=== PATIENT | female | born 1940 | race Native Hawaiian/Other Pacific Islander ===

== ENCOUNTER 2018-12-19 17:28 | Emergency (ER) | payer MEDICARE, OTHER ==
[2018-12-19] MEDS ORDERED: Enoxaparin 60 mg Syringe SC STA (18:32)
--- NOTE | 2018-12-19 18:33 | C.PDOC ---
History Of Present Illness 78 year old female brought to ED via EMS for left calf pain. Patient denies trauma or injury. Patient states that she has had the pain for months. She states that she takes oxycodone for the pain. Patient denies numbness or weakness. Time Seen by Provider: 12/19/18 18:20 Chief Complaint (Nursing): Lower Extremity Problem/Injury History Per: Patient, EMS History/Exam Limitations: no limitations Onset/Duration Of Symptoms: Other (months) Current Symptoms Are (Timing): Still Present Past Medical History Reviewed: Historical Data, Nursing Documentation, Vital Signs - Medical History PMH: No Chronic Diseases Surgical History: No Surg Hx Family History: States: Unknown Family Hx - Social History Hx Alcohol Use: No Hx Substance Use: No - Immunization History Hx Tetanus Toxoid Vaccination: No Hx Influenza Vaccination: No Hx Pneumococcal Vaccination: No Review Of Systems Except As Marked, All Systems Reviewed And Found Negative. Musculoskeletal: Positive for: Leg Pain (left calf pain) Physical Exam - Physical Exam Appears: Well, Non-toxic, No Acute Distress Skin: Normal Color, Warm, Dry Head: Atraumatic, Normacephalic Eye(s): bilateral: Normal Inspection, PERRL, EOMI Nose: Normal Oral Mucosa: Moist Chest: Symmetrical Cardiovascular: Rhythm Regular, No Murmur Respiratory: Normal Breath Sounds, No Rales, No Rhonchi, No Wheezing Gastrointestinal/Abdominal: Normal Exam, Soft, No Tenderness Extremity: Tenderness (left calf), No Swelling (left calf), Other (achilles tendon intact, pulses equal, DP and PT pulses intact) Extremity: Bilateral: Normal Color And Temperature, Normal ROM Pulses: Left Dorsalis Pedis: Normal, Right Dorsalis Pedis: Normal Neurological/Psych: Oriented x3, Normal Speech, Normal Cognition Medical Decision Making Medical Decision Making: Assessment: calf pain Plan:Patient given Lovenox SC and Motrin PO Advised patient to return tomorrow for US of the left lower extremity Patient was in waiting room and now noted to be confused based upon previous note it was mentioned however nurse note indicated patient with left leg pain. patient brought back into ED and full workup ordered unable to ammend this chart as patient was discharged from the system. Disposition Counseled Patient/Family Regarding: Studies Performed, Diagnosis, Need For Followup - Disposition Disposition: HOME/ ROUTINE Disposition Time: 18:32 Condition: STABLE Additional Instructions: return to ER in AM for ultrasound of calf bring your discharge papers with you return to ER sooner if symptoms worsens or progress Instructions: Muscle and Bone Pain (DC) Forms: [facility] (Telugu), General Discharge Instructions - Clinical Impression Clinical Impression: Calf pain - Scribe Statement The provider has reviewed the documentation as recorded by the Scribe (Goldie Peralta) All medical record entries made by the Scribe were at my direction and personally dictated by me. I have reviewed the chart and agree that the record accurately reflects my personal performance of the history, physical exam, medical decision making, and the department course for this patient. I have also personally directed, reviewed, and agree with the discharge instructions and disposition.
[2018-12-19] MEDS ORDERED: Enoxaparin 80 mg Syringe ONE (18:41)
[2018-12-19 19:16] VITALS: BP 174/108; PULSE 78; TEMP 98.3; O2SAT 98
== END 2018-12-19 19:17 | disposition home or self-care (01) ==
LOC: C.ER 17:28
DX: M79.662 Pain in left lower leg (principal)
CPT/HCPCS: 82948; 96372; 99284; J1650

== ENCOUNTER 2018-12-19 20:18 | Inpatient (IN) | payer MEDICARE, BC ==
[2018-12-19 20:24] VITALS: BMI 26.4
--- NOTE | 2018-12-19 21:17 | C.PDOC ---
History Of Present Illness Patient is a 78 year old female who was seen earlier today in the ED for calf pain, but it was reported after discharge that patient was biba for confusion and was noted to be driving and not knowing where she was going. Patient was initially aox3 and is now aox1. HPI limited due to patient's condition. Time Seen by Provider: 12/19/18 20:23 Chief Complaint (Nursing): Medical Clearance History Per: Patient, Other History/Exam Limitations: clinical condition Current Symptoms Are (Timing): Still Present Recent travel outside of the [place]: No Additional History Per: Patient Past Medical History Reviewed: Historical Data, Nursing Documentation, Vital Signs Vital Signs: Last Vital Signs Temp 98.8 F 12/19/18 20:24 Pulse 72 12/19/18 20:24 Resp 16 12/19/18 20:24 BP 185/94 H 12/19/18 20:24 Pulse Ox 95 12/19/18 20:24 - Medical History PMH: No Chronic Diseases Surgical History: No Surg Hx Family History: States: Unknown Family Hx - Social History Hx Alcohol Use: No Hx Substance Use: No - Immunization History Hx Tetanus Toxoid Vaccination: No Hx Influenza Vaccination: No Hx Pneumococcal Vaccination: No Review Of Systems Review Of Systems: ROS cannot be obtained secondary to pt's inabilty to answer questions. Physical Exam - Physical Exam Appears: Non-toxic, No Acute Distress Skin: Normal Color, Warm, Dry Head: Atraumatic, Normacephalic Eye(s): bilateral: Normal Inspection, PERRL, EOMI Oral Mucosa: Moist Chest: Symmetrical Cardiovascular: Rhythm Regular, No Murmur Respiratory: Normal Breath Sounds, No Rales, No Rhonchi, No Wheezing Gastrointestinal/Abdominal: Normal Exam, Soft, No Tenderness Extremity: Bilateral: Atraumatic, Normal Color And Temperature, Normal ROM Neurological/Psych: Other (AOx1) ED Course And Treatment - Laboratory Results Result Diagrams: 12/19/18 21:33 12/19/18 21:33 ECG: Interpreted By Me, Viewed By Me ECG Rhythm: Sinus Rhythm Interpretation Of ECG: Normal intervals, normal axis. Nonspecific ST/T wave changes Rate From EC O2 Sat by Pulse Oximetry: 95 (on RA) Pulse Ox Interpretation: Normal - CT Scan/US CT Head Other Rad Studies (CT/US): Read By Radiologist, Radiology Report Reviewed CT/US Interpretation: EXAM: CT Head without Intravenous Contrast. CLINICAL HISTORY: Dizzy. TECHNIQUE: Axial computed tomography images of the head/brain without intravenous contrast. 0.00 mGy-cm. COMPARISON: None provided. FINDINGS: BRAIN. There is mild periventricular, deep and subcortical white matter hypodensity bilaterally, compatible with mild microangiopathy. No evidence for acute intracranial hemorrhage. VENTRICLES: There is moderate prominence of ventricles and sulci compatible with moderate atrophy. ORBITS: The orbits are unremarkable. SINUSES AND MASTOIDS: The paranasal sinuses and mastoid air cells are clear. BONES: No evidence for displaced calvarial frac ture. SOFT TISSUES: Unremarkable. MISCELLANEOUS: No evidence for acute territorial infarction. IMPRESSION: 1. There is moderate prominence of ventricles and sulci compatible with moderate atrophy. 2. There is mild periventricular, deep and subcortical white matter hypodensity bilaterally, com patible with mild microangiopathy. 3. No evidence for acute intracranial abnormality. Medical Decision Making Medical Decision Making: Plan: CAT Head EKG CXR Labs Urinalysis Assessment: mental status change Disposition Discussed With DrTravis: Sonny Sherman Jr. Doctor Will See Patient In The: Hospital Counseled Patient/Family Regarding: Studies Performed, Diagnosis - Disposition Disposition: HOSPITALIZED Disposition Time: 22:17 Condition: FAIR Forms: [facility] (Serbian) - Clinical Impression Clinical Impression: Confusion - Scribe Statement The provider has reviewed the documentation as recorded by the Zane Lloyd All medical record entries made by the Ankuribtonio were at my direction and personally dictated by me. I have reviewed the chart and agree that the record accurately reflects my personal performance of the history, physical exam, medic al decision making, and the department course for this patient. I have also personally directed, reviewed, and agree with the discharge instructions and disposition.
[2018-12-19 21:37] LABS: BASO # 0.1 K/uL (0.0-0.2); BASO % 0.9 % (0.0-2.0); EOS # 0.2 K/uL (0.0-0.7); EOS % 3.5 % (0.0-4.0); HEMOGLOBIN 14.6 g/dL (11.0-16.0); LYMPH # 2.5 K/uL (1.0-4.3); LYMPH % 35.7 % (20.0-40.0); MEAN CELL VOLUME 84.8 fL (81.0-99.0); MEAN CORPUSCULAR HEMOGLOBIN 29.5 pg (27.0-31.0); MEAN CORPUSCULAR HGB CONC 34.8 g/dL (33.0-37.0); MONO # 0.7 K/uL (0.0-0.8); MONO % 9.5 % (0.0-10.0); NEUT # 3.5 K/uL (1.8-7.0); NEUT % 50.4 % (50.0-75.0); NRBC % 0.1 % (0.0-2.0); RBC 4.93 Mil/uL (3.80-5.20); RED CELL DISTRIBUTION WIDTH 13.6 % (11.5-14.5)
[2018-12-19 22:06] LABS: ALB/GLOB RATIO 1.2 (1.0-2.1); ALBUMIN 4.1 g/dL (3.5-5.0); ALT/SGPT 16 U/L (9-52); AST/SGOT 39 U/L (14-36); BLOOD UREA NITROGEN 30 mg/dL (7-17); CALCIUM 9.7 mg/dl (8.6-10.4); GFR NON-AFRICAN AMERICAN > 60
[2018-12-19 22:14] LABS: B-TYPE NATRIURETIC PEPTIDE 71.1 pg/mL (0-900)
[2018-12-20 07:10] LABS: SQUAMOUS EPITHIAL < 1 /hpf (0-5); URINE BACTERIA RARE (<OCC); URINE BILIRUBIN NEGATIVE (NEGATIVE); URINE BLOOD 2+ (NEGATIVE); URINE CLARITY Hazy (Clear); URINE COLOR Yellow (YELLOW); URINE GLUCOSE (UA) NORMAL (Normal); URINE HYALINE CAST 0-2 /lpf (0-2); URINE LEUKOCYTE ESTERASE TRACE Leu/uL (Negative); URINE PROTEIN 1+ mg/dL (NEGATIVE); URINE UROBILINOGEN NORMAL mg/dL (0.2-1.0)
--- NOTE | 2018-12-20 08:03 | CT ---
Date of service: 12/19/2018 PROCEDURE: CT HEAD WITHOUT CONTRAST. HISTORY: dizziness COMPARISON: None available. TECHNIQUE: Axial computed tomography images were obtained through the head/brain without intravenous contrast. Radiation dose: Total exam DLP = 1044.07 mGy-cm. This CT exam was performed using one or more of the following dose reduction techniques: Automated exposure control, adjustment of the mA and/or kV according to patient size, and/or use of iterative reconstruction technique. FINDINGS: HEMORRHAGE: No intracranial hemorrhage. BRAIN: No mass effect or edema. There is mild volume loss. There are mild white matter changes likely represent chronic microvascular ischemic disease. VENTRICLES: Unremarkable. No hydrocephalus. CALVARIUM: Unremarkable. PARANASAL SINUSES: Unremarkable as visualized. No significant inflammatory changes. MASTOID AIR CELLS: Unremarkable as visualized. No inflammatory changes. OTHER FINDINGS: None. IMPRESSION: No evidence of acute intracranial hemorrhage intracranial collection mass effect or midline shift. Mild atrophy and chronic microvascular ischemic changes. Preliminary report was submitted by [facility] Radiology contains concordant findings.
--- NOTE | 2018-12-20 09:31 | CP.PCM.HP ---
History of Present Illness - History of Present Illness History of Present Illness: H&P for Dr. Sherman. 78 year old Female with PMHx of lumbar radiculopathy and chronic L leg pain presents to ED after she was found to be confused, driving around [facility]. Patient was AOx1 on arrival. However, patient was AOx3 earlier in the day when she was seen in the ED for L calf pain. At that time, patient was given Lovenox SC, Motrin PO and advised to return the the next morning for US of the LLE. At the time of my exam, patient was AOx2 (person and time). She stated that she made a wrong turn while driving and got lost. Patient is complaining of L calf cramping, which she states she had for a long time and attributes to her lumbar radiculopathy. Patient denies fever, chills, nausea, vomiting, slurred speech, focal weakness and numbness, change in vision, change in hearing, abdominal pain, chest pain, shortness of breath, dysuria. PMHx: lumbar radiculopathy, chronic L leg pain PSHx: total abdominal hysterectomy Meds: Pain meds she does not recall, ibuprofen 200mg BID, Gabapentin 300mg BID Allergies: NKDA Social: denies tobacco, illicit drugs, occasional alcohol use. Retired teacher. . No children. Family hx: Sister-HTN Review of Systems: -Gen: No fever, No chills, No headache, No lethargy, No weakness. -HEENT: No dizziness, No change in vision, No change in hearing, No sore throa t, No dysphagia, No nasal congestion, No mucous. -Cardio: No chest pain, No palpitations, No lower extremity edema, No orthopnea. -Resp: No cough, No dyspnea, No hemoptysis, No wheezing, No pain on i nspiration. -GI: No abdominal pain, No nausea/vomiting, No diarrhea/constipation, No hematochezia, No hematemesis. -: No dysuria, No urinary freq, No incontinence, No hematuria, No change in urinary stream. -MSK: + L leg pain -Skin: No itching, No rash, No lesions. -Neuro: + confusion, No numbness, No tingling, No focal weakness, No syncope. -Psych: No anxiety, No depression, No H/I, No S/I, No hallucinations. Present on Admission - Present on Admission Any Indicators Present on Admission: No Past Patient History - Past Social History Smoking Status: Never Smoked - MUSCULOSKELETAL/RHEUMATOLOGICAL Hx Musculoskeletal Disorders: Yes Hx Back Pain: Yes Other/Comment: lower extremity pain. - PSYCHIATRIC Hx Substance Use: No - SURGICAL HISTORY Hx Hysterectomy: Yes - ANESTHESIA Hx Anesthesia: Yes Hx Anesthesia Reactions: No Meds Allergies/Adverse Reactions: Allergies Allergy/AdvReac Type Severity Reaction Status Date / Time No Known Allergies Allergy Verified 12/19/18 17:48 Physical Exam - Constitutional Appears: Non-toxic, No Acute Distress - Head Exam Head Exam: ATRAUMATIC, NORMOCEPHALIC - Eye Exam Eye Exam: EOMI, Normal appearance, PERRL - ENT Exam ENT Exam: Mucous Membranes Moist, Normal Exam - Neck Exam Neck exam: Positive for: Full Rom, Normal Inspection - Respiratory Exam Respiratory Exam: Clear to Auscultation Bilateral, NORMAL BREATHING PATTERN. absent: Rales, Rhonchi, Wheezes - Cardiovascular Exam Cardiovascular Exam: REGULAR RHYTHM, +S1, +S2 - GI/Abdominal Exam GI & Abdominal Exam: Normal Bowel Sounds, Soft. absent: Distended, Guarding, Rebound, Tenderness - Extremities Exam Extremities exam: Positive for: full ROM (L leg ROM intact, but painful), normal inspection, pedal pulses present. Negative for: calf tenderness, pedal edema, tenderness Additional comments: LLE non tender to palpation, no edema. - Neurological Exam Additional comments: AOx2 (person and place). PERRL. No facial asymmetry. CN 2-12 intact. Speech is normal. 5/5 muscle strength in all extremities, sensation intact bilaterally. No dysmetria. No dysdiadochokenesis. - Psychiatric Exam Psychiatric exam: Normal Mood - Skin Skin Exam: Dry, Normal Color, Warm Results - Vital Signs Recent Vital Signs: Last Vital Signs Temp 98 F 12/20/18 07:44 Pulse 78 12/20/18 07:44 Resp 20 12/20/18 07:44 BP 97/60 L 12/20/18 07:44 Pulse Ox 95 12/20/18 07:44 - Labs Result Diagrams: 12/19/18 21:33 12/20/18 11:53 Labs: Laboratory Results - last 24 hr 12/19/18 12/19/18 12/19/18 20:30 21:33 21:33 WBC 7.0 RBC 4.93 Hgb 14.6 Hct 41.8 MCV 84.8 MCH 29.5 MCHC 34.8 RDW 13.6 Plt Count 258 MPV 7.0 L Neut % (Auto) 50.4 Lymph % (Auto) 35.7 Jerome % (Auto) 9.5 Eos % (Auto) 3.5 Baso % (Auto) 0.9 Neut # (Auto) 3.5 Lymph # (Auto) 2.5 Jerome # (Auto) 0.7 Eos # (Auto) 0.2 Baso # (Auto) 0.1 Sodium 137 Potassium 3.7 Chloride 103 Carbon Dioxide 29 Anion Gap 9 L BUN 30 H Creatinine 0.9 Est GFR ( Amer) > 60 Est GFR (Non-Af Amer) > 60 POC Glucose (mg/dL) 102 Random Glucose 106 H Calcium 9.7 Total Bilirubin 0.8 AST 39 H ALT 16 Alkaline Phosphatase 85 Troponin I < 0.0120 NT-Pro-B Natriuret Pep 71.1 Total Protein 7.5 Albumin 4.1 Globulin 3.4 Albumin/Globulin Ratio 1.2 TSH 3rd Generation 4.11 Urine Color Urine Clarity Urine pH Ur Specific Nelson Urine Protein Urine Glucose (UA) Urine Ketones Urine Blood Urine Nitrate Urine Bilirubin Urine Urobilinogen Ur Leukocyte Esterase Urine WBC (Auto) Urine RBC (Auto) Ur Squamous Epith Cells Urine Bacteria Hyaline Casts Urine Yeast (Budding) 12/20/18 06:42 WBC RBC Hgb Hct MCV MCH MCHC RDW Plt Count MPV Neut % (Auto) Lymph % (Auto) Jerome % (Auto) Eos % (Auto) Baso % (Auto) Neut # (Auto) Lymph # (Auto) Jerome # (Auto) Eos # (Auto) Baso # (Auto) Sodium Potassium Chloride Carbon Dioxide Anion Gap BUN Creatinine Est GFR ( Amer) Est GFR (Non-Af Amer) POC Glucose (mg/dL) Random Glucose Calcium Total Bilirubin AST ALT Alkaline Phosphatase Troponin I NT-Pro-B Natriuret Pep Total Protein Albumin Globulin Albumin/Globulin Ratio TSH 3rd Generation Urine Color Yellow Urine Clarity Hazy Urine pH 6.0 Ur Specific Nelson 1.019 Urine Protein 1+ H Urine Glucose (UA) Normal Urine Ketones Negative Urine Blood 2+ H Urine Nitrate Negative Urine Bilirubin Negative Urine Urobilinogen Normal Ur Leukocyte Esterase Trace Urine WBC (Auto) 20 H Urine RBC (Auto) 98 H Ur Squamous Epith Cells < 1 Urine Bacteria Rare Hyaline Casts 0-2 Urine Yeast (Budding) Few H Assessment & Plan - Assessment and Plan (Free Text) Assessment: 78 year old female with pmhx of lumbar radiculopathy admitted for evaluation of AMS AMS CT head: no acute abnormality, chronic microvascular ischemic changes EKG: NSR @ 74, prolonged QTc at 475, nonspecific T wave abnormalities f/u blood cx f/u UA Asa 81mg PO daily Crestor 10mg HS HTN hypertensive of admission 185/94 denies hx of HTN Hydralazine 25mg PO x1 HCTZ 25 daily Lumbar radiculopathy Tylenol/Motrin PRN Gabapentin 300mg BID Ppx VTE: Heparin Q8H Discussed w/ Dr. Lane Clements, PGY-1
--- NOTE | 2018-12-20 09:54 | RAD ---
Date of service: 12/19/2018 PROCEDURE: CHEST RADIOGRAPH, 1 VIEW HISTORY: SOB COMPARISON: 12/19/2018. FINDINGS: LUNGS: The lungs are well inflated and clear. PLEURA: No pneumothorax or pleural effusion. CARDIOVASCULAR: The heart is normal in size. No aortic atherosclerotic calcifications present. OSSEOUS STRUCTURES: Within normal limits for the patient's age. VISUALIZED UPPER ABDOMEN: Normal. OTHER FINDINGS: None. IMPRESSION: No active pulmonary disease.
--- NOTE | 2018-12-20 11:05 | CARD ---
APPROVED REPORT Date of service: 12/19/2018 EKG Measurement Heart [id number] <Conclusion> Normal sinus rhythm Nonspecific T wave abnormality Prolonged QT Abnormal ECG
[2018-12-20 12:15] LABS: ALB/GLOB RATIO 1.3 (1.0-2.1); ALBUMIN 4.7 g/dL (3.5-5.0); ALT/SGPT 15 U/L (9-52); AST/SGOT 36 U/L (14-36); BLOOD UREA NITROGEN 25 mg/dL (7-17); CALCIUM 10.1 mg/dl (8.6-10.4); GFR NON-AFRICAN AMERICAN > 60
--- NOTE | 2018-12-20 12:44 | CP.PCM.PN ---
Subjective - Date & Time of Evaluation Date of Evaluation: 12/20/18 Time of Evaluation: 08:45 - Subjective Subjective: Patient examined at bedside, still somewhat confused. Patient reports continued left lower leg pain, for which she follows with a story analyst, and reports pain management with anti-inflammatory agents. Patient denies history of hypert ension. Denies complaints of chest pain, SOB, nausea, constipation. Objective - Vital Signs/Intake and Output Vital Signs (last 24 hours): Temp Pulse Resp BP Pulse Ox 98 F 78 20 97/60 L 95 12/20/18 07:44 12/20/18 07:44 12/20/18 07:44 12/20/18 07:44 12/20/18 07:44 - Medications Medications: Current Medications Acetaminophen (Tylenol 325mg Tab) 650 mg PO Q6 PRN PRN Reason: Pain, moderate (4-7) Gabapentin (Neurontin) 300 mg PO BID [facility] Last Admin: 12/20/18 10:36 Dose: 300 mg Heparin Sodium (Porcine) (Heparin) 5,000 units SC Q8 [facility] Last Admin: 12/20/18 05:49 Dose: Not Given Ibuprofen (Motrin Oral Susp) 200 mg PO Q12H [facility] Last Admin: 12/20/18 10:35 Dose: 200 mg Influenza Virus Vaccine (Flucelvax Quad [id number] Syr) 60 mcg IM .ONCE ONE Stop: 12/22/18 10:01 Pneumococcal Polyvalent Vaccine (Pneumovax 23 Vaccine) 0.5 ml IM .ONCE ONE Stop: 12/22/18 10:01 Rosuvastatin Calcium (Crestor) 10 mg PO HS [facility] - Labs Labs: 12/19/18 21:33 12/20/18 11:53 - Constitutional Appears: Non-toxic, No Acute Distress, Confused - Head Exam Head Exam: ATRAUMATIC, NORMAL INSPECTION, NORMOCEPHALIC - Eye Exam Eye Exam: EOMI, Normal appearance - ENT Exam ENT Exam: Mucous Membranes Moist, Normal Exam - Neck Exam Neck Exam: Normal Inspection - Respiratory Exam Respiratory Exam: Clear to Ausculation Bilateral, NORMAL BREATHING PATTERN - Cardiovascular Exam Cardiovascular Exam: REGULAR RHYTHM, Murmur - GI/Abdominal Exam GI & Abdominal Exam: Soft, Normal Bowel Sounds. absent: Distended, Tenderness - Extremities Exam Extremities Exam: Normal Inspection. absent: Calf Tenderness, Pedal Edema - Neurological Exam Neurological Exam: Awake, Oriented x3 - Psychiatric Exam Psychiatric exam: Normal Affect, Normal Mood - Skin Skin Exam: Dry, Intact, Normal Color, Warm Assessment and Plan - Assessment and Plan (Free Text) Assessment: 78 year old female with pmhx of lumbar radiculopathy admitted for evaluation of AMS Plan: PE, acute D-dimer elevated at 999 CTA: multiple filling defects noted in right middle and lower lobes, left upper lobe consistent with pulmonary emboli. Mild cardiomegaly. Mildly enlarged right heart f/u LE dopplers f/u echo started on xarelto 15mg po BID AMS CT head: no acute abnormality, chronic microvascular ischemic changes EKG: f/u blood cx UA: 20 WBC, 98 RBC TSH/B12: WNL RPR negative UTI, suspected WBC 20, RBC 98 starting macrobid 100mg po q12 HTN hypertensive on admission 185/94 denies hx of HTN adding lisinopril 20mg po qd Lumbar radiculopathy Tylenol/Motrin PRN SCD contraindicated Ppx VTE: on xarelto; SCD contraindicated GI: Pepcid 20mg BID Dispo: Pt needs YAMILE pierson Discussed w/ Dr. Lane Paul, PGY-1
[2018-12-20] MEDS ORDERED: Iodixanol 320 MG/ML 100 ML BOTTLE IV ONE (13:23)
--- NOTE | 2018-12-20 14:33 | CT ---
Date of service: 12/20/2018 PROCEDURE: CT Chest with contrast (Pulmonary Angiogram) HISTORY: elevated d-dimer COMPARISON: None available. TECHNIQUE: Axial computed tomography images were obtained of the chest in the pulmonary arterial phase of enhancement. Coronal and sagittal reformatted images were created and reviewed. Intravenous contrast dose: 100 mL of Visipaque 320 intravenously. Radiation dose: Total exam DLP = 382.67 mGy-cm. This CT exam was performed using one or more of the following dose reduction techniques: Automated exposure control, adjustment of the mA and/or kV according to patient size, and/or use of iterative reconstruction technique. FINDINGS: PULMONARY ARTERIES: There are filling defect noted in the right middle right lower and left upper lobe pulmonary arteries consistent with pulmonary emboli. The main pulmonary artery is not enlarged. 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 The aortic arch and descending thoracic aorta are normal in caliber. There are foci of atherosclerotic calcification and mural thickening noted in the aortic arch and descending thoracic aorta. LUNGS: There is a pleural-based nodule seen along the right lesser fissure measures 5.2 millimeter. No evidence of pneumonia or mass otherwise in the lungs. PLEURAL SPACES: Unremarkable. No effusion or pneumothorax. HEART: The heart is mildly enlarged. No evidence of pericardial effusion. There is mild enlargement of right heart suggestive of mild heart strain. LYMPH NODES: No lymphadenopathy. BONES, CHEST WALL: Unremarkable. No fracture or destructive lesion OTHER FINDINGS: Mild distal esophagus mucosal thickening is noted. IMPRESSION: Multiple filling defects noted in the right middle right lower and left upper lobes pulmonary arteries consistent with pulmonary emboli. Mild cardiomegaly. Mildly enlarged right heart. No evidence of acute pulmonary disease. The above findings were reported to the nurse taking care of the patient on C3 T Mrs. Hudson at 2:20 p.m. on 12/20/2018
[2018-12-20 18:05] LABS: BASO % 0.5 % (0.0-2.0); EOS # 0.1 K/uL (0.0-0.7); EOS % 1.4 % (0.0-4.0); HEMOGLOBIN 15.6 g/dL (11.0-16.0); LYMPH # 2.9 K/uL (1.0-4.3); LYMPH % 34.3 % (20.0-40.0); MEAN CELL VOLUME 84.9 fL (81.0-99.0); MEAN CORPUSCULAR HEMOGLOBIN 29.6 pg (27.0-31.0); MEAN CORPUSCULAR HGB CONC 34.9 g/dL (33.0-37.0); MEAN PLATELET VOLUME 7.1 fL (7.2-11.7); MONO # 0.7 K/uL (0.0-0.8); MONO % 8.6 % (0.0-10.0); NEUT # 4.6 K/uL (1.8-7.0); NEUT % 55.2 % (50.0-75.0); RBC 5.28 Mil/uL (3.80-5.20); RED CELL DISTRIBUTION WIDTH 13.6 % (11.5-14.5); WHITE BLOOD COUNT 8.4 K/uL (4.8-10.8)
[2018-12-20 18:16] LABS: PROTHROMBIN TIME 10.4 SECONDS (9.7-12.2)
[2018-12-20] MEDS: Tmp-Smz 800 mg-160 mg DS Tab PO SCH (21:11)
--- NOTE | 2018-12-21 08:02 | CP.PCM.PN ---
Subjective - Date & Time of Evaluation Date of Evaluation: 12/21/18 Time of Evaluation: 08:01 - Subjective Subjective: Medicine Progress Note: Patient seen and examined at bedside. Per nursing no acute events occurred overnight .Patient denies any fevers, chills, headaches, dizziness, abdominal pain, or any other complaints. Objective - Vital Signs/Intake and Output Vital Signs (last 24 hours): Temp Pulse Resp BP Pulse Ox 98 F 69 20 133/79 95 12/20/18 23:15 12/21/18 07:49 12/20/18 23:15 12/21/18 04:18 12/20/18 23:15 - Medications Medications: Current Medications Acetaminophen (Tylenol 325mg Tab) 650 mg PO Q6 PRN PRN Reason: Pain, moderate (4-7) Famotidine (Pepcid) 20 mg PO BID [facility] Last Admin: 12/20/18 17:51 Dose: 20 mg Gabapentin (Neurontin) 300 mg PO BID [facility] Last Admin: 12/20/18 17:51 Dose: 300 mg Ibuprofen (Motrin Tab) 400 mg PO Q6H PRN PRN Reason: Pain, moderate (4-7) Last Admin: 12/20/18 17:59 Dose: 400 mg Influenza Virus Vaccine (Flucelvax Quad [id number] Syr) 60 mcg IM .ONCE ONE Stop: 12/22/18 10:01 Lisinopril (Zestril) 20 mg PO DAILY [facility] Pneumococcal Polyvalent Vaccine (Pneumovax 23 Vaccine) 0.5 ml IM .ONCE ONE Stop: 12/22/18 10:01 Rivaroxaban (Xarelto) 15 mg PO BID [facility] Last Admin: 12/20/18 17:52 Dose: 15 mg Rosuvastatin Calcium (Crestor) 10 mg PO HS [facility] Last Admin: 12/20/18 21:11 Dose: 10 mg Trimethoprim/Sulfamethoxazole (Bactrim Ds Tab) 1 tab PO Q12H [facility]; Protocol Stop: 12/23/18 20:31 Last Admin: 12/20/18 21:11 Dose: 1 tab - Labs Labs: 12/20/18 17:49 12/20/18 11:53 PT 10.4 SECONDS (9.7-12.2) 12/20/18 17:49 INR 1.0 12/20/18 17:49 APTT 38 SECONDS (21-34) H 12/20/18 17:49 - Head Exam Head Exam: ATRAUMATIC, NORMAL INSPECTION - Eye Exam Eye Exam: EOMI, Normal appearance, PERRL Pupil Exam: NORMAL ACCOMODATION - ENT Exam ENT Exam: Mucous Membranes Moist, Normal Exam, Normal Oropharynx - Respiratory Exam Respiratory Exam: Clear to Ausculation Bilateral, NORMAL BREATHING PATTERN. absent: Respiratory Distress, Stridor - Cardiovascular Exam Cardiovascular Exam: REGULAR RHYTHM, +S1, +S2 - GI/Abdominal Exam GI & Abdominal Exam: Soft, Normal Bowel Sounds. absent: Hyperactive Bowel Sounds - Extremities Exam Extremities Exam: Full ROM, Normal Inspection. absent: Pedal Edema - Back Exam Back Exam: NORMAL INSPECTION. absent: CVA tenderness (R), paraspinal tenderness - Neurological Exam Neurological Exam: Alert, Awake, CN II-XII Intact, Oriented x3 - Psychiatric Exam Psychiatric exam: Normal Affect, Normal Mood - Skin Skin Exam: Dry, Intact, Normal Color Assessment and Plan - Assessment and Plan (Free Text) Plan: 78 year old female with pmhx of lumbar radiculopathy admitted for evaluation of AMS Plan: PE, acute D-dimer elevated at 999 CTA: multiple filling defects noted in right middle and lower lobes, left upper lobe consistent with pulmonary emboli. Mild cardiomegaly. Mildly enlarged right heart LE dopplers prelim reading negative. f/u echo started on xarelto 15mg po BID AMS CT head: no acute abnormality, chronic microvascular ischemic changes EKG: f/u blood cx UA: 20 WBC, 98 RBC TSH/B12: WNL RPR negative UTI, suspected WBC 20, RBC 98 starting macrobid 100mg po q12 HTN hypertensive on admission 185/94 denies hx of HTN adding lisinopril 20mg po qd Lumbar radiculopathy Tylenol/Motrin PRN SCD contraindicated Ppx VTE: on xarelto; SCD contraindicated GI: Pepcid 20mg BID Dispo: Pt needs YAMILE pierson Discussed w/ Dr. Lane Phillips, PGY-2
[2018-12-21] MEDS: Tmp-Smz 800 mg-160 mg DS Tab PO SCH ×2 (08:48→20:31)
[2018-12-21 09:36] LABS: BASO % 0.8 % (0.0-2.0); EOS # 0.1 K/uL (0.0-0.7); EOS % 2.1 % (0.0-4.0); HEMOGLOBIN 15.4 g/dL (11.0-16.0); LYMPH # 1.9 K/uL (1.0-4.3); LYMPH % 32.1 % (20.0-40.0); MEAN CELL VOLUME 85.5 fL (81.0-99.0); MEAN CORPUSCULAR HEMOGLOBIN 30.1 pg (27.0-31.0); MEAN CORPUSCULAR HGB CONC 35.2 g/dL (33.0-37.0); MONO # 0.4 K/uL (0.0-0.8); MONO % 7.6 % (0.0-10.0); NEUT # 3.4 K/uL (1.8-7.0); NEUT % 57.4 % (50.0-75.0); NRBC % 0.2 % (0.0-2.0); RBC 5.13 Mil/uL (3.80-5.20); RED CELL DISTRIBUTION WIDTH 13.4 % (11.5-14.5); WHITE BLOOD COUNT 5.9 K/uL (4.8-10.8)
[2018-12-21 10:21] LABS: ALB/GLOB RATIO 1.3 (1.0-2.1); ALBUMIN 4.3 g/dL (3.5-5.0); ALT/SGPT 10 U/L (9-52); AST/SGOT 37 U/L (14-36); BLOOD UREA NITROGEN 21 mg/dL (7-17); GFR NON-AFRICAN AMERICAN 53
--- NOTE | 2018-12-21 19:13 | CARD ---
APPROVED REPORT Date of service: 12/21/2018 EXAM: Two-dimensional and M-mode echocardiogram with Doppler and color Doppler. Other Information Quality : GoodRhythm : INDICATION PE R/O RIGHT HEART STRAIN 2D DIMENSIONS IVSd1.2 (0.7-1.1cm)LVDd2.4 (3.9-5.9cm) LVOT Diameter1.4 (1.8-2.4cm)PWd1.4 (0.7-1.1cm) LVDs1.7 (2.5-4.0cm)FS (%) 29.9 % LVEF (%)59.4 (>50%) M-Mode DIMENSIONS Left Atrium (MM)3.71 (2.5-4.0cm)Aortic Root3.12 (2.2-3.7cm) Aortic Cusp Exc.1.32 (1.5-2.0cm) Mitral Valve MV E Nhwrhwnq08.2cm/sMV A Ssgmemdn060.9cm/sE/A ratio0.5 TDI Lateral E' Peak V4.54cm/sMedial E' Peak V9.45cm/sE/Lateral E'11.1 E/Medial E'5.3 Pulmonary Valve PV Peak Dmnchtzo48.0cm/sPV Peak Grad.2mmHg Tricuspid Valve TR Peak Ulupxees880js/sTR Peak Gr.[id number] LEFT VENTRICLE The left ventricle is normal size. There is mild concentric left ventricular hypertrophy. There is mild concentric left ventricular hypertrophy. The left ventricular function is normal. The left ventricular ejection fraction is within the normal range. About 70% No regional wall motion abnormalities noted. Transmitral Doppler flow pattern is Grade I-abnormal relaxation pattern. No left ventricle thrombus noted on this study. There is no ventricular septal defect visualized. There is no left ventricular aneurysm. There is no mass noted in the left ventricle. RIGHT VENTRICLE The right ventricle is normal size. There is normal right ventricular wall thickness. The right ventricular systolic function is normal. ATRIA The left atrium size is normal. The right atrium size is normal. The interatrial septum is intact with no evidence for an atrial septal defect. AORTIC VALVE The aortic valve is normal in structure and function. No aortic regurgitation is present. There is no aortic valvular stenosis. There is no aortic valvular vegetation. MITRAL VALVE The mitral valve is normal in structure and function. There is no evidence of mitral valve prolapse. There is no mitral valve stenosis. There is no mitral valve regurgitation noted. TRICUSPID VALVE The tricuspid valve is normal in structure and function. There is no tricuspid valve regurgitation noted. There is no tricuspid valve prolapse or vegetation. There is no tricuspid valve stenosis. PULMONIC VALVE The pulmonary valve is normal in structure and function. There is no pulmonic valvular regurgitation. There is no pulmonic valvular stenosis. GREAT VESSELS The aortic root is normal in size. The ascending aorta is normal in size. The pulmonary artery is normal. The IVC is normal in size and collapses >50% with inspiration. PERICARDIAL EFFUSION The pericardium appears normal. There is no pleural effusion. <Conclusion> The left ventricular function is normal. Mildly increased wall thickness with type I diastolic dysfunction. Normal Doppler.
[2018-12-21] MEDS: guaiFENesin 100 mg/5 ml Syrup UD PO PRN (20:31)
[2018-12-22 01:32] VITALS: RESP 20
--- NOTE | 2018-12-22 08:11 | CP.PCM.PN ---
Subjective - Date & Time of Evaluation Date of Evaluation: 12/22/18 Time of Evaluation: 08:11 - Subjective Subjective: Medicine Progress Note: Patient seen and examined at bedside. Per nursing no acute events occurred overnight .Patient denies any fevers, chills, headaches, dizziness, abdominal pain, or any other complaints. Objective - Vital Signs/Intake and Output Vital Signs (last 24 hours): Temp Pulse Resp BP Pulse Ox 97.8 F 86 20 148/80 96 12/21/18 23:15 12/21/18 23:30 12/21/18 23:15 12/21/18 23:15 12/21/18 23:15 - Medications Medications: Current Medications Acetaminophen (Tylenol 325mg Tab) 650 mg PO Q6 PRN PRN Reason: Pain, moderate (4-7) Famotidine (Pepcid) 20 mg PO BID [facility] Last Admin: 12/21/18 18:23 Dose: 20 mg Gabapentin (Neurontin) 300 mg PO BID [facility] Last Admin: 12/21/18 18:23 Dose: 300 mg Guaifenesin (Robitussin) 100 mg PO Q4H PRN PRN Reason: Cough Last Admin: 12/21/18 20:31 Dose: 100 mg Ibuprofen (Motrin Tab) 400 mg PO Q6H PRN PRN Reason: Pain, moderate (4-7) Last Admin: 12/21/18 09:08 Dose: 400 mg Influenza Virus Vaccine (Flucelvax Quad [id number] Syr) 60 mcg IM .ONCE ONE Stop: 12/22/18 10:01 Lisinopril (Zestril) 20 mg PO DAILY [facility] Last Admin: 12/21/18 09:08 Dose: 20 mg Pneumococcal Polyvalent Vaccine (Pneumovax 23 Vaccine) 0.5 ml IM .ONCE ONE Stop: 12/22/18 10:01 Rivaroxaban (Xarelto) 15 mg PO BID [facility] Last Admin: 12/21/18 19:03 Dose: 15 mg Rosuvastatin Calcium (Crestor) 10 mg PO HS [facility] Last Admin: 12/21/18 23:13 Dose: 10 mg Trimethoprim/Sulfamethoxazole (Bactrim Ds Tab) 1 tab PO Q12H [facility]; Protocol Stop: 12/23/18 20:31 Last Admin: 12/21/18 20:31 Dose: 1 tab - Labs Labs: 12/21/18 09:21 12/21/18 09:21 PT 10.4 SECONDS (9.7-12.2) 12/20/18 17:49 INR 1.0 12/20/18 17:49 APTT 38 SECONDS (21-34) H 12/20/18 17:49 - Head Exam Head Exam: ATRAUMATIC, NORMAL INSPECTION - Eye Exam Eye Exam: EOMI, Normal appearance, PERRL Pupil Exam: NORMAL ACCOMODATION, PERRL. absent: Irregular, Unequal - ENT Exam ENT Exam: Mucous Membranes Moist, Normal Oropharynx - Respiratory Exam Respiratory Exam: Clear to Ausculation Bilateral, NORMAL BREATHING PATTERN. absent: Prolonged Expiratory Phase, Respiratory Distress - Cardiovascular Exam Cardiovascular Exam: REGULAR RHYTHM, +S1, +S2 - GI/Abdominal Exam GI & Abdominal Exam: Soft, Normal Bowel Sounds. absent: Hyperactive Bowel Sounds - Extremities Exam Extremities Exam: Normal Inspection. absent: Pedal Edema - Back Exam Back Exam: NORMAL INSPECTION. absent: paraspinal tenderness - Neurological Exam Neurological Exam: Alert, Awake, CN II-XII Intact, Oriented x3 - Psychiatric Exam Psychiatric exam: Normal Affect, Normal Mood. absent: Depressed - Skin Skin Exam: Dry, Intact Assessment and Plan - Assessment and Plan (Free Text) Plan: 78 year old female with pmhx of lumbar radiculopathy admitted for evaluation of AMS Plan: PE, acute D-dimer elevated at 999 CTA: multiple filling defects noted in right middle and lower lobes, left upper lobe consistent with pulmonary emboli. Mild cardiomegaly. Mildly enlarged right heart LE dopplers prelim reading negative. Echo: Type 1 diastolic dysfunction EF-59% Continue xarelto 15mg po BID AMS CT head: no acute abnormality, chronic microvascular ischemic changes EKG: f/u blood cx UA: 20 WBC, 98 RBC TSH/B12: WNL RPR negative UTI, suspected WBC 20, RBC 98 Continue macrobid 100mg po q12 HTN hypertensive on admission 185/94 denies hx of HTN continue lisinopril 20mg po qd Lumbar radiculopathy Tylenol/Motrin PRN SCD contraindicated Cough -Tessalon Pereles -Lozenges Ppx VTE: on xarelto; SCD contraindicated GI: Pepcid 20mg BID Dispo: Likely to be discharged tomorrow. F/u with Social work. Discussed w/ Dr. Lane Phillips, PGY-2
[2018-12-22 08:28] LABS: BASO # 0.1 K/uL (0.0-0.2); BASO % 0.9 % (0.0-2.0); EOS # 0.2 K/uL (0.0-0.7); EOS % 2.8 % (0.0-4.0); HEMOGLOBIN 15.5 g/dL (11.0-16.0); LYMPH % 27.4 % (20.0-40.0); MEAN CELL VOLUME 84.5 fL (81.0-99.0); MEAN CORPUSCULAR HGB CONC 35.6 g/dL (33.0-37.0); MEAN PLATELET VOLUME 7.3 fL (7.2-11.7); MONO # 0.9 K/uL (0.0-0.8); MONO % 11.4 % (0.0-10.0); NEUT # 4.3 K/uL (1.8-7.0); NEUT % 57.5 % (50.0-75.0); NRBC % 0.2 % (0.0-2.0); RBC 5.17 Mil/uL (3.80-5.20); RED CELL DISTRIBUTION WIDTH 13.6 % (11.5-14.5); WHITE BLOOD COUNT 7.4 K/uL (4.8-10.8)
[2018-12-22 08:38] LABS: ALB/GLOB RATIO 1.2 (1.0-2.1); ALBUMIN 4.1 g/dL (3.5-5.0)
[2018-12-22] MEDS ORDERED: Influenza Vaccine 60 mcg/0.5 mL SYR (4YR UP) IM ONE (10:00)
[2018-12-22] MEDS ORDERED: Pneumococcal 23-Valent Vaccine IM ONE (10:00)
[2018-12-22] MEDS: Tmp-Smz 800 mg-160 mg DS Tab PO SCH ×2 (10:06→22:17)
[2018-12-22] MEDS: guaiFENesin 100 mg/5 ml Syrup UD PO PRN (20:05)
[2018-12-23 06:43] LABS: BASO # 0.1 K/uL (0.0-0.2); EOS # 0.3 K/uL (0.0-0.7); EOS % 4.7 % (0.0-4.0); LYMPH # 2.2 K/uL (1.0-4.3); LYMPH % 33.6 % (20.0-40.0); MEAN CELL VOLUME 84.6 fL (81.0-99.0); MEAN CORPUSCULAR HEMOGLOBIN 29.9 pg (27.0-31.0); MEAN CORPUSCULAR HGB CONC 35.4 g/dL (33.0-37.0); MEAN PLATELET VOLUME 7.2 fL (7.2-11.7); MONO # 0.8 K/uL (0.0-0.8); MONO % 12.9 % (0.0-10.0); NEUT # 3.1 K/uL (1.8-7.0); NEUT % 47.8 % (50.0-75.0); NRBC % 0.1 % (0.0-2.0); RED CELL DISTRIBUTION WIDTH 13.3 % (11.5-14.5); WHITE BLOOD COUNT 6.5 K/uL (4.8-10.8)
--- NOTE | 2018-12-23 06:46 | CP.PCM.PN ---
Subjective - Date & Time of Evaluation Date of Evaluation: 12/23/18 Time of Evaluation: 07:45 - Subjective Subjective: Patient examined at bedside. Reports poor sleep 2/2 scratchy throat/coughing and not taking home sleep medication. Pt reports use of herbal supplement, risperal and klonopin at home. Pt reports back pain improved since admission. Reports episode of left sided chest pain over the weekend, resolved; no episodes since. Currently denies headache, dizziness, chest pain, SOB, nausea Objective - Vital Signs/Intake and Output Vital Signs (last 24 hours): Temp Pulse Resp BP Pulse Ox 98.3 F 76 20 142/81 94 L 12/22/18 15:49 12/23/18 01:22 12/22/18 15:49 12/22/18 15:49 12/22/18 15:49 Intake and Output: 12/22/18 12/23/18 18:59 06:59 Intake Total 400 Balance 400 - Medications Medications: Current Medications Acetaminophen (Tylenol 325mg Tab) 650 mg PO Q6 PRN PRN Reason: Pain, moderate (4-7) Benzonatate (Tessalon Perles) 100 mg PO TID [facility] Last Admin: 12/22/18 18:17 Dose: 100 mg Famotidine (Pepcid) 20 mg PO BID [facility] Last Admin: 12/22/18 18:17 Dose: 20 mg Gabapentin (Neurontin) 300 mg PO BID [facility] Last Admin: 12/22/18 18:17 Dose: 300 mg Guaifenesin (Robitussin) 100 mg PO Q4H PRN PRN Reason: Cough Last Admin: 12/22/18 20:05 Dose: 100 mg Ibuprofen (Motrin Tab) 400 mg PO Q6H PRN PRN Reason: Pain, moderate (4-7) Last Admin: 12/21/18 09:08 Dose: 400 mg Lisinopril (Zestril) 20 mg PO DAILY [facility] Last Admin: 12/22/18 10:06 Dose: 20 mg Pneumococcal Polyvalent Vaccine (Pneumovax 23 Vaccine) 0.5 ml IM .ONCE ONE Stop: 12/23/18 10:01 Rivaroxaban (Xarelto) 15 mg PO BID [facility] Last Admin: 12/22/18 22:17 Dose: 15 mg Rosuvastatin Calcium (Crestor) 10 mg PO HS [facility] Last Admin: 12/22/18 22:17 Dose: 10 mg Trimethoprim/Sulfamethoxazole (Bactrim Ds Tab) 1 tab PO Q12H [facility]; Protocol Stop: 12/23/18 20:31 Last Admin: 12/22/18 22:17 Dose: 1 tab - Labs Labs: 12/23/18 06:22 12/22/18 07:57 PT 10.4 SECONDS (9.7-12.2) 12/20/18 17:49 INR 1.0 12/20/18 17:49 APTT 38 SECONDS (21-34) H 12/20/18 17:49 - Constitutional Appears: Non-toxic, No Acute Distress - Head Exam Head Exam: ATRAUMATIC, NORMAL INSPECTION, NORMOCEPHALIC - Eye Exam Eye Exam: EOMI, Normal appearance - ENT Exam ENT Exam: Mucous Membranes Moist, Normal Exam - Neck Exam Neck Exam: Normal Inspection - Respiratory Exam Respiratory Exam: Clear to Ausculation Bilateral, NORMAL BREATHING PATTERN - Cardiovascular Exam Cardiovascular Exam: REGULAR RHYTHM, +S1, +S2 - GI/Abdominal Exam GI & Abdominal Exam: Soft, Normal Bowel Sounds. absent: Distended, Tenderness - Extremities Exam Extremities Exam: Calf Tenderness (left, chronic), Normal Capillary Refill. absent: Normal Inspection (left calf wrapped in GINA bandage), Pedal Edema - Back Exam Back Exam: NORMAL INSPECTION - Neurological Exam Neurological Exam: Alert, Awake, Oriented x3 - Psychiatric Exam Psychiatric exam: Normal Affect, Normal Mood - Skin Skin Exam: Dry, Intact, Normal Color, Warm Assessment and Plan - Assessment and Plan (Free Text) Assessment: 78 year old female with pmhx of lumbar radiculopathy admitted for evaluation of AMS Plan: PE, acute D-dimer elevated at 999 CTA: multiple filling defects noted in right middle and lower lobes, left upper lobe consistent with pulmonary emboli. Mild cardiomegaly. Mildly enlarged right heart LE dopplers prelim read negative. Echo: Type 1 diastolic dysfunction, EF~59%. Continue xarelto 15mg po BID(12/20) AMS CT head: no acute abnormality, chronic microvascular ischemic changes EKG: T wave abnormality blood cxs negative UA: 20 WBC, 98 RBC TSH/B12: WNL RPR negative crestor 10mg HS UTI, suspected WBC 20, RBC 98 Continue Bactrim po q12 for 3 days, until 12/23 Ucx negative HTN hypertensive on admission 185/94 denies hx of HTN continue lisinopril 20mg po qd Lumbar radiculopathy Tylenol/Motrin PRN SCD contraindicated Cough Tessalon Pereles Cepacol lozenges Robitussin Insomnia Home risperdal 0.5mg po HS Ppx VTE: on xarelto; SCD contraindicated GI: Pepcid 20mg BID Dispo: Likely discharge tmrw as brother is coming in; f/u with Social work. Will need prescription for cane, and continued PT Discussed w/ Dr. Lane Paul, PGY-1
[2018-12-23 06:49] LABS: ALB/GLOB RATIO 1.3 (1.0-2.1); ALT/SGPT 44 U/L (9-52); AST/SGOT 56 U/L (14-36); BLOOD UREA NITROGEN 20 mg/dL (7-17); CALCIUM 9.7 mg/dl (8.6-10.4); GFR NON-AFRICAN AMERICAN 43
[2018-12-23] MEDS: Tmp-Smz 800 mg-160 mg DS Tab PO SCH ×2 (08:58→21:30)
--- NOTE | 2018-12-23 09:09 | VASCLAB ---
Date of service: 12/20/2018 PROCEDURE: Lower Extremity Venous Duplex Exam. HISTORY: leg pain, pt with PE PRIORS: None. TECHNIQUE: Bilateral common femoral, femoral, popliteal and posterior tibial, peroneal and great saphenous veins were evaluated. Flow was assessed with color Doppler, compressibility, assessment of phasic flow and augmentation response. Report prepared by Dylan Marsh, BS, RVT FINDINGS: RIGHT: 1. Common Femoral Vein: 1.1. Compressibility - Fully compressible: Thrombus - None : Flow - Phasic: Augmentation -Normal: Reflux - None. 2. Femoral Vein: 2.1. Compressibility - Fully compressible: Thrombus - None : Flow - Phasic: Augmentation -Normal: Reflux - None. 3. Popliteal Vein: 3.1. Compressibility - Fully compressible: Thrombus - None : Flow - Phasic: Augmentation -Normal: Reflux - None. 4. Posterior Tibial Vein: 4.1. Compressibility - Fully compressible: Thrombus - None: Flow - Phasic: Augmentation -Normal: Reflux - None. 5. Peroneal Vein: 5.1. Compressibility - Fully compressible: Thrombus - None: Flow - Phasic: Augmentation -Normal: Reflux - None. 6. Great Saphenous Vein: 6.1. Compressibility - Fully compressible: Thrombus - None: Flow - Phasic: Augmentation - Normal: Reflux - None. LEFT: 1. Common Femoral Vein: 1.1. Compressibility - Fully compressible: Thrombus - None: Flow - Phasic: Augmentation -Normal: Reflux - None. 2. Femoral Vein: 2.1. Compressibility - Fully compressible: Thrombus - None: Flow - Phasic: Augmentation -Normal: Reflux - None. 3. Popliteal Vein: 3.1. Compressibility - Fully compressible: Thrombus - None : Flow - Phasic: Augmentation -Normal: Reflux - None. 4. Posterior Tibial Vein: 4.1. Compressibility - Fully compressible: Thrombus - None: Flow - Phasic: Augmentation -Normal: Reflux - None. 5. Peroneal Vein: 5.1. Compressibility - Fully compressible: Thrombus - None: Flow - Phasic: Augmentation -Normal: Reflux - None. 6. Great Saphenous Vein: 6.1. Compressibility - Fully compressible: Thrombus - None: Flow - Phasic: Augmentation - Normal: Reflux - None. OTHER FINDINGS: Right: None significant. Left: None significant. IMPRESSION: Right: No evidence of deep or superficial vein thrombosis of the right lower extremity. Normal valve function noted of the right side. Left: No evidence of deep or superficial vein thrombosis of the left lower extremity. Normal valve function noted of the left side.
[2018-12-23] MEDS ORDERED: Pneumococcal 23-Valent Vaccine IM ONE (10:00)
[2018-12-23] MEDS: Benzocaine/Menthol (Cepacol) Lozenge MT PRN ×3 (10:32→20:21)
[2018-12-23] MEDS: guaiFENesin 100 mg/5 ml Syrup UD PO PRN ×2 (16:07→22:52)
[2018-12-24 04:35] VITALS: TEMP 98.1
[2018-12-24 06:52] LABS: BASO # 0.1 K/uL (0.0-0.2); BASO % 0.7 % (0.0-2.0); EOS # 0.3 K/uL (0.0-0.7); HEMOGLOBIN 14.8 g/dL (11.0-16.0); LYMPH # 1.9 K/uL (1.0-4.3); LYMPH % 23.6 % (20.0-40.0); MEAN CELL VOLUME 84.9 fL (81.0-99.0); MEAN CORPUSCULAR HEMOGLOBIN 29.6 pg (27.0-31.0); MEAN CORPUSCULAR HGB CONC 34.8 g/dL (33.0-37.0); MEAN PLATELET VOLUME 7.3 fL (7.2-11.7); MONO # 0.8 K/uL (0.0-0.8); MONO % 9.3 % (0.0-10.0); NEUT # 5.1 K/uL (1.8-7.0); NEUT % 62.4 % (50.0-75.0); RBC 5.01 Mil/uL (3.80-5.20); RED CELL DISTRIBUTION WIDTH 13.6 % (11.5-14.5); WHITE BLOOD COUNT 8.2 K/uL (4.8-10.8)
[2018-12-24 07:52] LABS: ALB/GLOB RATIO 1.3 (1.0-2.1); ALBUMIN 3.9 g/dL (3.5-5.0); CALCIUM 9.3 mg/dl (8.6-10.4)
[2018-12-24 08:21] VITALS: BP 117/72; PULSE 83; O2SAT 96
[2018-12-24] MEDS: Benzocaine/Menthol (Cepacol) Lozenge MT PRN (10:26)
[2018-12-24] MEDS: guaiFENesin 100 mg/5 ml Syrup UD PO PRN (10:27)
--- NOTE | 2018-12-24 11:26 | CP.PCM.DIS ---
Provider - Provider Date of Admission: 12/23/18 16:18 Attending physician: Sonny Sherman Jr, MD Consults: 12/20/18 10:00 Social Work Referral Routine Comment: please eval Physician Instructions: Reason For Exam: andrey scre=8 Time Spent in preparation of Discharge (in minutes): 31 Diagnosis - Discharge Diagnosis (1) Confusion Status: Chronic (2) Calf pain Status: Resolved (3) Pulmonary embolism Status: Acute Hospital Course - Lab Results Lab Results: Micro Results 12/20/18 11:28 Blood Blood Culture - Preliminary NO GROWTH AFTER 3 DAYS 12/20/18 11:53 Blood Blood Culture - Preliminary NO GROWTH AFTER 3 DAYS 12/21/18 18:04 Urine Random Urine Culture - Final No Growth (<1,000 CFU/ML) Most Recent Lab Values WBC 8.2 K/uL (4.8-10.8) 12/24/18 06:41 RBC 5.01 Mil/uL (3.80-5.20) 12/24/18 06:41 Hgb 14.8 g/dL (11.0-16.0) 12/24/18 06:41 Hct 42.6 % (34.0-47.0) 12/24/18 06:41 MCV 84.9 fL (81.0-99.0) 12/24/18 06:41 MCH 29.6 pg (27.0-31.0) 12/24/18 06:41 MCHC 34.8 g/dL (33.0-37.0) 12/24/18 06:41 RDW 13.6 % (11.5-14.5) 12/24/18 06:41 Plt Count 272 K/uL (130-400) 12/24/18 06:41 MPV 7.3 fL (7.2-11.7) 12/24/18 06:41 Neut % (Auto) 62.4 % (50.0-75.0) 12/24/18 06:41 Lymph % (Auto) 23.6 % (20.0-40.0) 12/24/18 06:41 [place] % (Auto) 9.3 % (0.0-10.0) 12/24/18 06:41 Eos % (Auto) 4.0 % (0.0-4.0) 12/24/18 06:41 Baso % (Auto) 0.7 % (0.0-2.0) 12/24/18 06:41 Neut # (Auto) 5.1 K/uL (1.8-7.0) 12/24/18 06:41 Lymph # (Auto) 1.9 K/uL (1.0-4.3) 12/24/18 06:41 Hawkins # (Auto) 0.8 K/uL (0.0-0.8) 12/24/18 06:41 Eos # (Auto) 0.3 K/uL (0.0-0.7) 12/24/18 06:41 Baso # (Auto) 0.1 K/uL (0.0-0.2) 12/24/18 06:41 PT 10.4 SECONDS (9.7-12.2) 12/20/18 17:49 INR 1.0 12/20/18 17:49 APTT 38 SECONDS (21-34) H 12/20/18 17:49 D-Dimer, Quantitative 996 ng/mlDDU (0-243) H 12/20/18 11:53 Sodium 135 mmol/L (132-148) 12/24/18 06:41 Potassium 3.6 mmol/L (3.6-5.2) 12/24/18 06:41 Chloride 102 mmol/L (98-107) 12/24/18 06:41 Carbon Dioxide 25 mmol/L (22-30) 12/24/18 06:41 Anion Gap 11 (10-20) 12/24/18 06:41 BUN 20 mg/dL (7-17) H 12/24/18 06:41 Creatinine 1.3 mg/dL (0.7-1.2) H 12/24/18 06:41 Est GFR ( Amer) 48 12/24/18 06:41 Est GFR (Non-Af Amer) 40 12/24/18 06:41 POC Glucose (mg/dL) 102 mg/dL (65-110) 12/19/18 20:30 Random Glucose 107 mg/dL (65-105) H 12/24/18 06:41 Calcium 9.3 mg/dl (8.6-10.4) 12/24/18 06:41 Total Bilirubin 0.6 mg/dL (0.2-1.3) 12/24/18 06:41 AST 54 U/L (14-36) H 12/24/18 06:41 ALT 31 U/L (9-52) 12/24/18 06:41 Alkaline Phosphatase 82 U/L (38-126) 12/24/18 06:41 Troponin I < 0.0120 ng/mL (0.00-0.120) 12/23/18 06:22 NT-Pro-B Natriuret Pep 71.1 pg/mL (0-900) 12/19/18 21:33 Total Protein 7.0 g/dL (6.3-8.3) 12/24/18 06:41 Albumin 3.9 g/dL (3.5-5.0) 12/24/18 06:41 Globulin 3.1 gm/dL (2.2-3.9) 12/24/18 06:41 Albumin/Globulin Ratio 1.3 (1.0-2.1) 12/24/18 06:41 Vitamin B12 662 pg/mL (239-931) 12/20/18 11:53 TSH 3rd Generation 4.11 mIU/L (0.46-4.68) 12/19/18 21:33 Urine Color Yellow (YELLOW) 12/20/18 06:42 Urine Clarity Hazy (Clear) 12/20/18 06:42 Urine pH 6.0 (5.0-8.0) 12/20/18 06:42 Ur Specific [place] 1.019 (1.003-1.030) 12/20/18 06:42 Urine Protein 1+ mg/dL (NEGATIVE) H 12/20/18 06:42 Urine Glucose (UA) Normal mg/dL (Normal) 12/20/18 06:42 Urine Ketones Negative mg/dL (NEGATIVE) 12/20/18 06:42 Urine Blood 2+ (NEGATIVE) H 12/20/18 06:42 Urine Nitrate Negative (NEGATIVE) 12/20/18 06:42 Urine Bilirubin Negative (NEGATIVE) 12/20/18 06:42 Urine Urobilinogen Normal mg/dL (0.2-1.0) 12/20/18 06:42 Ur Leukocyte Esterase Trace Dandre/uL (Negative) 12/20/18 06:42 Urine WBC (Auto) 20 /hpf (0-5) H 12/20/18 06:42 Urine RBC (Auto) 98 /hpf (0-3) H 12/20/18 06:42 Ur Squamous Epith Cells < 1 /hpf (0-5) 12/20/18 06:42 Urine Bacteria Rare (<OCC) 12/20/18 06:42 Hyaline Casts 0-2 /lpf (0-2) 12/20/18 06:42 Urine Yeast (Budding) Few /hpf (NEGATIVE) H 12/20/18 06:42 RPR Nonreactive (NONREACTIVE) 12/20/18 17:49 - Hospital Course Hospital Course: Upon Admission 78 year old Female with PMHx of lumbar radiculopathy and chronic L leg pain presents to ED after she was found to be confused, driving around [facility]. Patient was AOx1 on arrival. However, patient was AOx3 earlier in the day when she was seen in the ED for L calf pain. At that time, patient was given Lovenox SC, Motrin PO and advised to return the the next morning for US of the LLE. At the time of my exam, patient was AOx2 (person and time). She stated that she made a wrong turn while driving and got lost. Patient is complaining of L calf cramping, which she states she had for a long time and attributes to her lumbar radiculopathy. Patient denies fever, chills, nausea, vomiting, slurred speech, focal weakness and numbness, change in vision, change in hearing, abdominal pain, chest pain, shortness of breath, dysuria. Hospital Course 78 yo female patient admitted to hospital for leg pain and confusion. Patient had d-dimer ordered which was elevated. Chest CTA was ordered and patient found to have pulmonary embolisms. Patient was started on blood thinner xarelto. Brother came into hospital to discuss patient care. Patient according to family member has formal diagnosis of Alzheimer's dementia. Recommendation was made to stop driving and followup with neurologist for management of dementia progressing. Discharge Plan Patient is stable for discharge home. Patient was evaluated for complaints of altered mental status, and found to have several Pulmonary Emboli Patient instructed to follow up with PMD or Dr. Sherman within 1 week of discharge Patient instructed to follow up with lapidary apprentice within 1 week of discharge Patient instructed to take all medication as prescribed; do not stop taking any medications unless told to do so by a physician Patient will be discharged with prescriptions to be filled Xarelto 15mg po BID for 17 days Lisinopril 20mg po qd Crestor 5mg po qd Patient is being treated with a medication that thins your blood. Patient advised to take caution as not to sustain any trauma which may result in excessive or prolonged bleeding. Patient instructed to return to the ED immediately with any prolonged or excessive bleeding, or any worsening of symptoms Disclaimer: Above is a synopsis of patient's current hospital admission. For full report refer to EMR Discharge Exam - Additional Findings Additional findings: - Constitutional Appears: Non-toxic, No Acute Distress - Head Exam Head Exam: ATRAUMATIC, NORMAL INSPECTION, NORMOCEPHALIC - Eye Exam Eye Exam: EOMI, Normal appearance - ENT Exam ENT Exam: Mucous Membranes Moist, Normal Exam - Neck Exam Neck Exam: Normal Inspection - Respiratory Exam Respiratory Exam: Clear to Ausculation Bilateral, NORMAL BREATHING PATTERN - Cardiovascular Exam Cardiovascular Exam: REGULAR RHYTHM, +S1, +S2 - GI/Abdominal Exam GI & Abdominal Exam: Soft, Normal Bowel Sounds. absent: Distended, Tenderness - Extremities Exam Extremities Exam: Calf Tenderness (left, chronic), Normal Capillary Refill. absent: Normal Inspection (left calf wrapped in GINA bandage), Pedal Edema - Back Exam Back Exam: NORMAL INSPECTION - Neurological Exam Neurological Exam: Alert, Awake, Oriented x3 - Psychiatric Exam Psychiatric exam: Normal Affect, Normal Mood - Skin Skin Exam: Dry, Intact, Normal Color, Warm Discharge Plan - Discharge Medications Prescriptions: Lisinopril [Zestril] 20 mg PO DAILY #30 tab Rivaroxaban [Xarelto] 15 mg PO BID #34 tab Rosuvastatin Calcium [Crestor] 5 mg PO HS #30 tab - Follow Up Plan Condition: FAIR Disposition: HOME/ ROUTINE Instructions: Rivaroxaban, Pulmonary Embolism (Blood Clot in the Lungs) (DC), Influenza Virus Vaccine (Inactivated), Pneumococcal Polysaccharide Vaccine (23- Valent), Why Vaccines Are Important for Everyone Additional Instructions: Patient is stable for discharge home. Patient was evaluated for complaints of altered mental status, and found to have several Pulmonary Emboli Patient instructed to follow up with PMD or Dr. Sherman within 1 week of discharge Patient instructed to follow up with lapidary apprentice within 1 week of discharge Patient instructed to take all medication as prescribed; do not stop taking any medications unless told to do so by a physician Patient will be discharged with prescriptions to be filled Xarelto 15mg po BID for 17 days Lisinopril 20mg po qd Crestor 5mg po qd Patient is being treated with a medication that thins your blood. Patient advised to take caution as not to sustain any trauma which may result in excessive or prolonged bleeding. Patient instructed to return to the ED immediately with any prolonged or excessive bleeding, or any worsening of symptoms Referrals: Sonny Sherman Jr., MD [Medical Doctor] -
--- NOTE | 2018-12-24 20:48 | CARD ---
APPROVED REPORT Date of service: 12/22/2018 EKG Measurement Heart [id number] <Conclusion> Normal sinus rhythm Nonspecific T wave abnormality Prolonged QT Abnormal ECG
== END 2018-12-24 14:28 | disposition home or self-care (01) | DRG 884 ==
LOC: C.ER 20:18 → C.9E 22:17 → C.3T 12-20 00:11 → C.6T 12-20 21:58 → OBSVTOIN 12-23 16:18
PROVIDERS: ADMIT Internal Medicine; ATTEND Internal Medicine
DX: F03.90 Unspecified dementia, unspecified severity, without behavioral disturbance, psychotic disturbance, mood disturbance, and anxiety (principal); I26.99 Other pulmonary embolism without acute cor pulmonale; F05 Delirium due to known physiological condition; M54.16 Radiculopathy, lumbar region; M79.605 Pain in left leg; I10 Essential (primary) hypertension; R05 Cough; G47.00 Insomnia, unspecified